=== PATIENT | female | born 1955 | race Caucasian/White ===

== ENCOUNTER → 2024-05-02 12:27 | Outpatient (CLI) | payer MEDICARE, OTHER, SELFPAY ==
--- NOTE | 2024-05-02 12:31 | DI.RAD.S_ITS ---
PROCEDURE: FL JOINT INJECTION LARGE LT INDICATIONS: osteoarthritis of left hip COMPARISON: None. TECHNIQUE: The indications, alternatives, benefits, risks, and complications of the procedure were explained to the patient. Written informed consent was obtained and placed in the chart. The patient was placed in an appropriate position on the fluoroscopy table, and a site was chosen for percutaneous access under fluoroscopic guidance. The site was prepped and draped in a sterile fashion. Local anesthetic was administered using a 1% lidocaine solution. A hypodermic or spinal needle was then used to access the symptomatic joint. Intra-articular location of the needle tip was confirmed by injecting a small amount of contrast, followed by steroid administration. The needle was then withdrawn, and a bandage applied to the puncture site. FINDINGS: Joint injected: Left hip Medications injected: 5 mL mL of 40 mg/mL Kenalog and 0.5% Ropivacaine mixture. Patient's pain before injection: 3 out of 10. Patient's pain after injection: 3 out of 10. Complications: None. IMPRESSION: Successful fluoroscopically guided administration of steroid and anaesthetic solution into the left hip joint. Dictated by: Alin Monroe M.D. on 05/02/2024 at 16:28 Approved by: Alin Monroe M.D. on 05/02/2024 at 16:33
[2024-05-02] MEDS: LIDOCAINE 1% 20 ML INJ (13:55)
[2024-05-02] MEDS: ROPIVACAINE 0.5% PF 5 MG/ML 20ML VIAL 20 ML INJ (13:55)
[2024-05-02] MEDS: TRIAMCINOLONE 40 MG/ML VIAL INTRA-ARTI (13:56)
== END ==
PROVIDERS: Referring Provider Orthopaedic Surgery; Visit Provider Orthopaedic Surgery
DX: M16.12 Unilateral primary osteoarthritis, left hip (principal)
CPT/HCPCS: 20610; 77002; Q9967

== ENCOUNTER → 2024-05-15 10:50 | Outpatient (CLI) | payer MEDICARE, OTHER, SELFPAY ==
--- NOTE | 2024-05-15 10:53 | EKG_ITS ---
[facility] [address] [place] [address] Test Date: 2024-05-15 Pat Name: Haley Mccain Department: 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
[2024-05-15 11:35] LABS: Add Manual Diff / Slide Review NO; Basophils Absolute Auto 0 /uL (0-100); Basophils Percent Auto 0.2 % (0-2); Eosinophils Absolute Auto 100 /uL (0-450); Eosinophils Percent Auto 2.3 % (2-4); Hemoglobin 12.5 g/dL (12.0-16.0); Lymphocytes Absolute Auto 1000 /uL (1100-4500); Lymphocytes Percent Auto 17.1 % (25-40); Mean Corpuscular HGB Conc 33.8 % (30-36); Mean Corpuscular Volume 94.7 fL (80-100); Monocytes Absolute Auto 400 /uL (0-900); Monocytes Percent Auto 7.3 % (3-14); Neutrophils Absolute Auto 4400 /uL (1500-7000); Neutrophils Percent Auto 73.1 % (50-75); Platelet Count 205 X10^3/uL (150-400); Red Blood Cell Count 3.91 X10^6/uL (4.0-5.2); Red Cell Distribution Width 14.2 % (11.6-14.8)
[2024-05-15 11:46] LABS: Appearance Urine UA CLEAR; Bilirubin Urine UA NEGATIVE (NEGATIVE); Color Urine UA YELLOW; Glucose Urine UA NEGATIVE (Negative); Ketones Urine UA NEGATIVE (NEGATIVE); Leukocyte Esterase Urine UA TRACE (NEGATIVE); Nitrite Urine UA NEGATIVE (Negative); Occult Blood Urine UA NEGATIVE (Negative); Protein Urine UA NEGATIVE (Negative); Urobilinogen Urine UA 0.2 E.U./dL (0.2)
[2024-05-15 11:58] LABS: Hemoglobin A1C% w Est Avg Glu 5.4 % (4.0-6.0)
[2024-05-15 11:59] LABS: BUN Creatinine Ratio 23.6 (6-22); Blood Urea Nitrogen 21 mg/dL (7-17); Calcium 9.4 mg/dL (8.4-10.2); Carbon Dioxide 29 mmol/L (22-32); Chloride 102 mmol/L (98-107); Estimated Glomerular Filt Rate > 60 mL/min (>60); Glucose 94 mg/dL (80-110); HEMOLYSIS < 15 (0-50); Potassium 4.1 mmol/L (3.4-5.1); Sodium 138 mmol/L (137-145)
[2024-05-15 12:03] LABS: Bacteria Urine None Seen; RBC Urine None Seen (0-5/HPF); Squamous Epithelial Cell Urine 1-5 /HPF (0-5/HPF); Urine Volume 10mL (spun); WBC Urine 1-5/HPF (0-5/HPF)
[2024-05-15 12:04] LABS: Culture Indicated Urine Cult Not Indicated
== END ==
PROVIDERS: Referring Provider Orthopaedic Surgery; Visit Provider Orthopaedic Surgery
DX: Z01.818 Encounter for other preprocedural examination (principal); R73.9 Hyperglycemia, unspecified; Z01.812 Encounter for preprocedural laboratory examination; N39.0 Urinary tract infection, site not specified
CPT/HCPCS: 36415; 80048; 81001; 83036; 85025; 93005; 93010

== ENCOUNTER → 2024-06-07 13:42 | Outpatient (CLI) | payer MEDICARE, OTHER, SELFPAY ==
--- NOTE | 2024-06-07 13:43 | DI.RAD.S_ITS ---
PROCEDURE: XR DEXA AXIAL SKELETON INDICATIONS: OSTEOPOROSIS SCREENING COMPARISON: None. FINDINGS: Lumbar Spine: Bone mineral density 0.666 g/cm2, T score -3.6. Left Femoral Neck: Bone mineral density 0.540 g/cm2, T score -2.8 Left Hip: Bone mineral density 0.469 g/cm2, T score -3.9. Fracture Risk Calculation (when applicable): 10-year fracture risk of a major osteoporotic fracture 14 percent and of a hip fracture 3.8 percent. (T score greater or equal to -1.0 to: NORMAL) (T score from -1.1 to -2.4: OSTEOPENIA) (T score less than or equal to -2.5: OSTEOPOROSIS) IMPRESSION: Osteoporosis---recommend repeat DEXA in 2 years or less for reassessment of response to treatment. Follow-up guidelines as follows: Osteoporosis: Consider a repeat DEXA and Vertebral Fracture Assessment (VFA) exam in 2 years or sooner if medically necessary, to reassess this patient's status. Osteopenia: Consider a repeat DEXA in 2-3 years to reassess this patient's status, or if there is a new clinical indication. Normal: Consider a repeat DEXA in 5 years or sooner, or if there is a new clinical indication. All treatment decisions require clinical judgment and consideration of individual patient factors, including patient preferences, comorbidities, previous drug use, risk factors not captured in the FRAX model (e.g., frailty, falls, vitamin D deficiency, increased bone turnover, interval significant decline in bone density ) and possible under- or over-estimation of fracture risk by FRAX. In addition, the NOF Guide recommends that FDA-approved medical therapies be considered in postmenopausal women and men age >= 50 years with a: * Hip or vertebral (clinical or morphometric) fracture * T-score of <=-2.5 at the spine or hip * Ten-year fracture probability by FRAX of >= 3% for hip fracture or >=20% for major osteoporotic fracture. Dictated by: Theodore Alcazar M.D. on 06/09/2024 at 5:58 Approved by: Theodore Alcazar M.D. on 06/09/2024 at 5:59
== END ==
LOC: RAD 13:42
PROVIDERS: Referring Provider Orthopaedic Surgery; Visit Provider Orthopaedic Surgery
DX: M81.0 Age-related osteoporosis without current pathological fracture (principal)
CPT/HCPCS: 77080

== ENCOUNTER 2024-08-07 08:56 | Day surgery (SDC) | payer MEDICARE, OTHER, SELFPAY ==
[2024-08-01 08:53] VITALS: BMI 23.0
[2024-08-07] VITALS (10 sets, daily range): BP systolic 90–169; BP diastolic 66–103; PULSE 62–76; RESP 12–20; TEMP 36.1–37.1; O2SAT 96–100; BMI 22.8
--- NOTE | 2024-08-07 | DI.RAD.S_ITS ---
PROCEDURE: XR HIP W PEL IF DONE LT 2V INDICATIONS: left total anterior hip TECHNIQUE: AP pelvis with lateral view(s) of the left hip(s). COMPARISON: [facility], CR, XR HIP W PEL IF DONE LT MIN 4V, 08/07/2024, 13:17. FINDINGS: Bones: There are no osseous abnormalities. SI and hip joints: New left total hip prostheses is in near anatomic alignment. Older right total hip prostheses anatomic aligned without loosening or infection. Soft tissues: Soft tissue swelling gas seen over the surgical site as expected IMPRESSION: Left total hip prostheses in near anatomic alignment. Dictated by: Maurisio Box M.D. on 08/08/2024 at 10:25 Approved by: Maruisio Box M.D. on 08/08/2024 at 10:26
--- NOTE | 2024-08-07 06:00 | DI.RAD.S_ITS ---
PROCEDURE: XR HIP W PEL IF DONE LT MIN 4V INDICATIONS: KAREN TECHNIQUE: 4 intraoperative fluoroscopic view(s) of the hip acquired. COMPARISON: None. FINDINGS: Intraoperative fluoroscopic images shows left total hip arthroplasty in progress. IMPRESSION: Fluoro guidance was provided intraoperatively for left total hip arthroplasty performed by referring clinician. Dictated by: Willis Marcum M.D. on 08/07/2024 at 15:40 Approved by: Willis Marcum M.D. on 08/07/2024 at 15:41
[2024-08-07] MEDS: CELECOXIB 200 MG CAPSULE PO (09:57)
[2024-08-07] MEDS: LACTATED RINGERS 1,000 ML 42 ML IV ×2 (09:58→13:45)
[2024-08-07] MEDS: ACETAMINOPHEN 325 MG TABLET 975 MG PO (09:58)
[2024-08-07] MEDS: VANCOMYCIN 1,000 MG in SODIUM CHLORIDE 0.9% 250 ML 250 MG IV (11:15)
--- NOTE | 2024-08-07 11:27 | PM.PREOP ---
Pre-operative Note Interval Note History & Physical reviewed/Exam performed by Physician: Yes Changes to H&P: No
[2024-08-07] MEDS: CEFAZOLIN 2 GM/100 ML PREMIX 100 ML IV ×2 (12:09→20:17)
[2024-08-07] MEDS: TRANEXAMIC ACID 1,000 MG VIAL 1000 MG INJ ×2 (12:10→14:10)
[2024-08-07] MEDS: BUPIVACAINE LIPOSOME 266 MG/20 ML VIAL INJ (12:42)
[2024-08-07] MEDS: BUPIVACAINE 0.25% W/ EPI 30 ML VIAL INJ (12:43)
--- NOTE | 2024-08-07 12:44 | SUR.OPER ---
Supine on padded [place] table with bilateral legs secured in padded positioning boots and suspended in positioning spars, operative leg (left) in traction per surgeon. Head on one pillow. Arm on non-operative side (right) secured on padded armboard <90 degrees abduction. Arm on operative side (left) padded and resting across chest then secured with tape over sheet. Padded perineal post in place per surgeon.
[2024-08-07] MEDS: EPINEPHrine 1 MG/ML IRR (14:30)
--- NOTE | 2024-08-07 15:43 | P.OP_ITS ---
Operative Date/Time/Diagnoses Date of procedure: 08/07/24 Time of procedure: 15:45 Pre-op diagnosis: left hip OA Post-op diagnosis: same Procedure & Clinicians Procedure: Left total hip arthroplasty anterior approach cemented Same procedure as scheduled: Yes Indications: The patient has had progressively worsening left hip pain with radiographic changes consistent with arthritis. Non-operative management has failed and the patient has requested total hip replacement. The risks, benefits and alternatives to surgery were discussed with the patient prior to proceeding. Risks discussed included, but were not limited to, failure to relieve pain, leg length discrepancy, dislocation, stiffness, infection, nerve damage, deep venous thrombosis, pulmonary embolism, stroke, coma, heart attack, permanent paralysis and , as well as the potential need for eventual revision of the prosthetic. Surgeon: Yaima Betancourt Electrical Products Sales Engineer: Adithya Asher Anesthesia Type: Spinal Operative Notes Findings: Severe left hip OA, soft bone Closure Type: primary Specimen(s): none sent Prosthetic devices, grafts, tissues, transplants, or devices: Betancourt and nephew polar cemented stem size 0, 46 mm R3 cup, neutral poly liner, 28 by-3 femoral head,two 6.5 mm screws Estimated Blood Loss (mL): 250 Blood products transfused: none Procedure in detail: The patient was brought to the operating room. Patient was carefully positioned in the supine position. Time-out was performed and antibiotics were given. Anesthesia was induced. She was positioned in the on the table in order to allow hyperextension of the hip. The left lower extremity was prepped and draped in a standard sterile fashion. An anterior left hip incision was made 1 fingerbreadth lateral to the anterior superior iliac spine and extended distally towards the greater trochanter. Dissection was carried out through skin and subcutaneous tissues. Superficial hemostasis was achieved. The fascia over the tensor fascia ni was defined and incised with a knife. Two Allis clamps were used to grasp the fascia. Tensor fascia ni was retracted laterally. A gelpi retractor was placed. Dissection was carried out down along the neck. The circumflex vessels were carefully identified and cauterized with the Aqua Mantis. A PA was used during the procedure and was essential for intraoperative retraction and safe implantation of the components. There was good visualization of the femoral neck. A Cobra was placed superior to the neck and the gluteus fibers were carefully stripped from that superior aspect of the capsule. A 2nd retractor was placed along the inferior aspect of the neck. The rectus insertion along the capsule was partially released. A 3rd retractor that was then gently placed over the rim of the acetabulum under the rectus. Capsule was carefully incised and released from the intertrochanteric line circumferentially superior to the mid sagittal line and inferiorly to the mid sagittal line until the lesser trochanter was palpable. A tag stitch was placed both in the superior and inferior limb of the capsular insertion. Along the acetabulum capsule was also released up to the mid sagittal 12:00 position. A portion of the labrum was resected. A saw was used to perform an osteotomy at the level of the intertrochanteric line and the junction of the superior femoral neck leaving approximately 1 finger breath of residual inferior neck above the lesser trochanter. A 2nd cut was made along the femoral neck at the base of the head and a napkin ring of neck was removed. Corkscrew was placed in the femoral head and the head was removed without difficulty. Retractors were then repositioned around the acetabulum. Residual labrum was resected and additional osteophytes were removed. A reamer that was 4 mm below the templated size was placed by hand in the acetabulum and it was reamed to centralize the acetabulum. It was then reamed up to 2 under the templated size and fluoroscopy was brought in to confirm the position of the reaming and depth of reaming. I reamed 1 under the anticipated size. She had a very small soft acetabulum. A trial cup was placed and noted that it was appropriately sized and fluoroscopy confirmed position and depth. The component was open and inserted without difficulty fluoroscopic imaging was used to confirm that the cup had been adequately seated and was well positioned. It was further stabilized with 2 screws. Neutral poly liner was placed. The cup was tested and noted to be stable. Attention was then directed to the femur. The femur was gently hyperextended additional capsular release was performed as needed in order to allow adequate visualization of the proximal femur with elevation of the femur. Patient was placed in a hyperextended slightly adducted position with maximum external rotation. Box osteotome was used to check for any residual neck as well as sclerotic bone along the trochanter. [place] pepper was placed in the femur. Additional broaching was performed. Canal finder was used to determine the alignment of the canal and position. Size 0 broach was placed. The canal was then appropriately broached up to the templated size as long as there was adequate stability of the broach and serial advancement of the broach without excessive impingement. Specific attention was directed at avoiding varus. She had soft bone. Her preoperative bone density showed a T-score of under -3. Trial reduction showed acceptable range of motion, good stability, no posterior impingement, uatsdin of leg length and appropriate lateral shuck. I also hyperflexed the hip and checked that there was no impingement anteriorly and there was good stability with flexion, adduction and internal rotation. She had a cemented prosthesis on the other side and soft bone with terrible osteoporosis and it was opted to proceed with a cemented hip replacement. The bone and the canal were carefully cleaned and brushed. It was irrigated with a pulse lavage. It was carefully dried and we used a whistle tip suction and a distal cement restrictor and then carefully mixed cement and injected it and pressurized the cement. Marcaine and Exparel were injected. The stem was placed without difficulty. Repeat trial reduction and x-ray showed acceptable overall position, length, and no evidence of the femoral fracture. Final head was placed. Wound was meticulously irrigated with normal saline. The hip was reduced and additional Exparel and Marcaine were injected. The capsule was closed with interrupted nonabsorbable sutures. The fascia of the tensor was closed with interrupted and running Vicryl. No drain was placed. Any tensor fascia ni muscle that appeared to be contused or injured which was a minimal amount was carefully resected. Capsule around the tensor was injected with Exparel and Marcaine. The skin was closed with barbed stitches for the subcutaneous tissue and skin. We also used surgical glue. The wound was dressed sterilely. Brief Betadine soak was also used and was meticulously irrigated with normal saline. Patient was transferred to recovery room in satisfactory condition. Complications: none Post-operative Condition: stable Disposition: Acute Care Plan for aftercare: The patient will be maintained on a standard total hip replacement protocol with weight bearing as tolerated and anterior hip precautions. The patient will receive Aspirin and sequential compression devices for DVT prophylaxis. The patient will be discharged home when safe for the home environment.
[2024-08-07] MEDS: IBUPROFEN 400 MG TABLET 800 MG PO (20:16)
[2024-08-07] MEDS: ASPIRIN EC 81 MG TABLET PO (20:16)
[2024-08-07] MEDS: HYDROCODONE/ACET 5/325 TABLET 1 TAB PO (20:17)
[2024-08-07] MEDS: LACTATED RINGERS 1,000 ML 100 ML IV (20:48)
[2024-08-07] MEDS: DOCUSATE 100 MG CAPSULE PO (21:53)
[2024-08-08] MEDS: ACETAMINOPHEN 325 MG TABLET 650 MG PO (04:34)
[2024-08-08 04:57] LABS: Hematocrit 30.8 % (36-46); Hemoglobin 10.7 g/dL (12.0-16.0)
[2024-08-08] MEDS: CEFAZOLIN 2 GM/100 ML PREMIX 100 ML IV (05:08)
[2024-08-08 08:00] VITALS: BP 126/73; PULSE 72; RESP 16; TEMP 36.6; O2SAT 98
[2024-08-08] MEDS: ASPIRIN EC 81 MG TABLET PO (08:46)
[2024-08-08] MEDS: HYDROCODONE/ACET 5/325 TABLET 1 TAB PO ×2 (08:47→14:30)
[2024-08-08] MEDS: IBUPROFEN 400 MG TABLET 800 MG PO (08:47)
[2024-08-08] MEDS: DOCUSATE 100 MG CAPSULE PO (08:48)
--- NOTE | 2024-08-08 08:50 | OT.IP.EVAL ---
Current Diagnoses Unilateral primary osteoarthritis, left hip (08/07/24) Surgery Performed Operation Date: 08/07/24 11:15 Actual Procedures p Total Hip Arthroplasty/Anterior Approach(Left) - Yaima Betancourt MD Past Medical History (Last Updated 08/01/24 @ 09:13 by Janey Montoya, RN) ADHD Anxiety Eczema HLD (hyperlipidemia) Osteoarthritis Osteoporosis Surgical History (Last Updated 08/01/24 @ 09:16 by Janey Montoya RN) History of hysterectomy History of total right hip replacement (07/2018) Hx of bilateral cataract extraction Hx of hernia repair Hx of tonsillectomy Occupational Therapy Inpatient Evaluation/Re-Eval M1 PT/OT-IP Prior Functional Status Start: 08/08/24 09:31 Freq: NEEDED Status: Active Protocol: Document 08/08/24 09:31 [facility] (Rec: 08/08/24 09:45 [facility] Desktop) Medical Review Prior Functional Status Communication Independent Mobility and Gait Pt has been using her FWW for the past week. Activities of Daily Living and IADL's Pt has been using LB dressing equipment and BSC over the toilet the past month, but otherwise able to do her ADL's . Social History Household Members children Living Arrangements House Number of Stairs To Enter/Railing? 1 - 6 inch step to get into the house. There is a ramp from the sewing room to back door. Home Environment Standard Height Toilet,Tub/ Shower Home Equipment Front Wheel Walker,Bedside Commode,Shower Seat with Backrest,Hand Held Shower,Long Handled Sponge,Long Handled Shoe Horn,Virtual Classroom Manager,Sock Aid Additional Social History Comment Pt's son to be able to assist pt however pt not wanting his assist for showering and toileting needs. Pt's sister lives down the street and can assist as well. Pt had R KAREN posterior 5 years ago. M2 OT-IP Current Condition Start: 08/08/24 09:31 Freq: Status: Active Protocol: Document 08/08/24 09:31 [facility] (Rec: 08/08/24 09:45 [facility] Desktop) Occupational Therapy Current Condition Current Condition Evaluation Date 08/08/24 Treatment Diagnosis S/P L KAREN Anterior approach Diagnosis Onset Date 08/07/24 Post Operative Precautions Anterior Hip Precautions No Hip Extension,No Hip External Rotation Weight Bearing Status Weight Bearing Status Weight Bear as Tolerated M3 OT- IP Subjective and Pain Start: 08/08/24 09:31 Freq: Status: Active Protocol: Document 08/08/24 09:31 [facility] (Rec: 08/08/24 09:45 [facility] Desktop) OT- Subjective Occupational Therapy Visit Type Type Initial Evaluation Visit Start Time 08:50 Visit Stop Time 09:28 Occupational Therapy Visit Comments Patient Comments Pt agreed to get up and get dressed. Patient/Caregiver Goals TO go home OT Pain Assessment Pain When Pain Assessed At Rest Pain Present Pain Present Pain Reported Location left hip Intensity 2 Scale Used Numeric (0 - 10) M4 OT- IP ADL's Start: 08/08/24 09:31 Freq: Status: Active Protocol: Document 08/08/24 09:31 [facility] (Rec: 08/08/24 09:45 [facility] Desktop) OT [id number]-[id number] General Evaluation Self-Feeding Ability Independent OT ADL-Grooming General Evaluation Areas Needing Assistance Retrieving/Set-up of Grooming Items OT ADL-Oral Care General Eval Oral Care Ability Independent OT ADL-Dressing General Eval Upper Body Dressing Ability Independent Lower Body Dressing Ability Contact Guard Assistance Comments OT Dressing Comments Assist to help get pants over the non slip socks. Educated to dress the LLE first and take out last. OT ADL-Toileting General Evaluation Toileting Ability Standby Assistance Comments OT Toileting Comments Educated to be mindful of LLE positioning during ADL needs. Suggested use of wipes and pads if needed. OT ADL-Bathing Comments OT Bathing Comments Suggested to practice getting into and out of the tub/shower with her son with her clothes on so to be sure she is able to do it. Pt does not want anyone to assist for showering needs. Otherwise suggested to have a robe on when getting in and out with assist. M5 OT- IP IADL's Start: 08/08/24 09:31 Freq: Status: Active Protocol: Document 08/08/24 09:31 [facility] (Rec: 08/08/24 09:45 [facility] Desktop) OT-Instrumental Activities of Daily Living Home Safety Awareness Awareness of Need for Assistance at Home Good Awareness Ability to Problem Solve Emergency Able to Problem Solve Situations Meal Preparation Meal Preparation Comments Pt's son to assist. Plate Glass Polisher Plate Glass Polisher Comments Pt's son to assist. M6 OT- IP Functional Cognition Start: 08/08/24 09:31 Freq: Status: Active Protocol: Document 08/08/24 09:31 [facility] (Rec: 08/08/24 09:45 [facility] Desktop) Cognitive Factors Limiting Selfcare Function Cognitive Ability Level of Alertness Alert Patient Orientation Name Attention Span Ability Capable of Focused Attention, Capable of Sustained Attention Ability to Follow Commands Able to Follow One Step Commands Cognitive Comments Cognitive Assessment Comments Pt able to follow commands for ADL and mobility needs. Pt needing vc for FWW safety and hand placement initially. OT- Vision and Hearing OT- Hearing Assessment OT- Hearing Assessment WFL M7 OT- IP Mobility and Balance Start: 08/08/24 09:31 Freq: Status: Active Protocol: Document 08/08/24 09: [facility] (Rec: 08/08/24 09:45 [facility] Desktop) OT- Bed Mobility Assessment Supine to Sit Supine to Sit Assist Standby Assistance Sit to Supine Sit to Supine Assist Standby Assistance OT-Transfer Assessment Sit to and From Stand Sit to and from Stand Standby Assistance,Contact Guard Assistance Transfers Transfer Ability Standby Assistance Technique Transfer Destination Bed,Chair,Toilet Comments Mobility Comments Pt hesitates to use LLE and cued to put weight on it. VC for FWW safety and not to have the FWW too close to her. VC to step with right foot back or just take small steps. Pt typically sleep on the right side and gets out that way. Educated best to get out on the left side.Practiced use of strap to assist to get her LLE into and out of the bed. OT- Balance Assessment Sitting Balance and Reactions Static Sitting Balance Ability Normal Dynamic Sitting Balance Ability Good Standing Balance and Reactions Static Standing Balance Ability Good Dynamic Standing Balance Ability Fair M8 OT- IP Objective Assessments Start: 08/08/24:31 Freq: Status: Active Protocol: Document 08/08/24 09:31 [facility] (Rec: 08/08/24 09:45 [facility] Desktop) OT Gross Range of Motion Upper Extremity Range of Motion Assessment Within Functional Limits OT Strength Upper Extremity Strength Assessment Within Functional Limits M9 OT- IP Assessment and Plan Start: 08/08/24:31 Freq: Status: Active Protocol: Document 08/08/24 09:31 [facility] (Rec: 08/08/24 09:45 [facility] Desktop) OT Summary Assessment and Plan Potential Rehabilitation Potential Excellent Analytic Complexity at Evaluation Low Summary OT Impairments Pain,Balance,Functional Mobility,Dressing,Toileting, Bathing,Toilet Transfers, Shower Transfers Progress Towards Goals Progressing Toward Goals Assessment Summary Pt low complexity and main barriers are pain and step. Pt has supportive son and sister to assist as needed. However pt does not want anyone to assist her with toileting and bathing needs. Pt to go home with assist and attend outpt PT. Pt doing well. Goals Grooming Goal Independent Dressing Goal Independent,Long Handled Shoe Horn,Virtual Classroom Manager,Sock Aid Toileting Goal Independent Bathing Goal Independent,Hand Held Shower Sprayer Toilet Transfer Goal Independent Shower Transfer Goal Independent Days to Meet Goals 3 Frequency of Treatment Frequency Of Treatment Once a Day Treatment Plan OT Treatment Plan ADL Training,Functional Mobility,Patient/Family Education,Discharge Planning Discharge Recommendations OT Discharge Recommendations Home with Assistance, Outpatient PT Transportation Needs at Discharge Private Vehicle
--- NOTE | 2024-08-08 10:55 | PT.IIE ---
Current Diagnoses Unilateral primary osteoarthritis, left hip (08/07/24) Surgery Performed Operation Date: 08/07/24 11:15 Actual Procedures p Total Hip Arthroplasty/Anterior Approach(Left) - Yaima Betancourt MD Surgical History (Last Updated 08/01/24 @ 09:16 by Janey Montoya, RN) History of hysterectomy History of total right hip replacement (07/2018) Hx of bilateral cataract extraction Hx of hernia repair Hx of tonsillectomy Medical History (Last Updated 08/01/24 @ 09:13 by Janey Montoya RN) ADHD Anxiety Eczema HLD (hyperlipidemia) Osteoarthritis Osteoporosis Physical Therapy Inpatient Evaluation/Re-Eval M1 PT/OT-IP Prior Functional Status Start: 08/08/24 12:56 Freq: NEEDED Status: Active Protocol: Document 08/08/24 10:55 AB (Rec: 08/08/24 13:17 AB [id number]) Medical Review Prior Functional Status Medical History Reviewed Yes Communication able to make needs known Mobility and Gait pt stated that she has been using her hurrycane for mobility but started using a FWW ~ 1 week ago due to hip pain Activities of Daily Living and IADL's per OT note: Pt has been using LB dressing equipment and BSC over the toilet the past month, but otherwise able to do her ADL's. Social History Household Members children Living Arrangements House Number of Floors (Floors) One Floor Number of Stairs To Enter/Railing? 1 step to enter Home Environment Standard Height Toilet,Tub/ Shower Home Equipment Front Wheel Walker,Bedside Commode,Shower Seat with Backrest,Hand Held Shower Additional Social History Comment pt lives with her son who can assist her if needed pt has a hurrycane M2 PT-IP Current Condition Start: 08/08/24 12:56 Freq: NEEDED Status: Active Protocol: Document 08/08/24 10:55 AB (Rec: 08/08/24 13:17 AB [id number]) Physical Therapy Current Condition Current Condition Evaluation Date 08/08/24 Treatment Diagnosis s/p L KAREN anterior; difficulty in walking Onset Date 08/07/24 M3 PT-IP Subjective Start: 08/08/24 12:56 Freq: NEEDED Status: Active Protocol: Document 08/08/24 10:55 AB (Rec: 08/08/24 13:17 AB [id number]) Subjective Physical Therapy Visit Type Type Initial Evaluation Visit Start Time 10:55 Visit Stop Time 11:30 Number of FORESTER AIDE Visits 0 Physical Therapy Visit Comments Patient Comments agreeable to do PT Therapy Pain Assessment Pain When Pain Assessed At Rest Pain Present Pain Present Pain Reported Location left hip Intensity 3 Scale Used Numeric (0 - 10) Pain Management Techniques Apply Cold,Modification of Treatment,Re-positioning, Timing of Activity with Medications M4 PT-IP Mobility and Gait Start: 08/08/24 12:56 Freq: NEEDED Status: Active Protocol: Document 08/08/24 10:55 AB (Rec: 08/08/24 13:17 AB [id number]) PT-Bed Mobility Assessment Supine to Sit Supine to Sit Standby Assistance Sit to Supine Sit to Supine Standby Assistance PT-Transfer Assessment Sit to and From Stand Sit to and from Stand Standby Assistance,1 Person Assistance,Use of Upper Extremities Equipment Transfer Assistive Device Gait Belt,Front Wheeled Walker Orthotic/Prosthetic Devices or Brace: No Transfers Transfer Destination Chair Transfer Technique ambulated Transfer Ability Level of Assist Standby Assistance,Contact Guard Assistance,1 Person Assistance,Use of Upper Extremities Comments Mobility Comments pt in bed and agreeable to do PT. obtained PLOF and home set up. educated on L hip anterior precautions. pt completed supine<>sit x 2 sets SBA and cues for techniques. pt stated that son will be able to assist her . sit to stand SBA and cues and ambulated in the room using FWW ~ 20 ft. pt sat on chair and rested. Sit<>stand x 3 sets completed SBA and techniques for body positioning to better transitions and more stable initial standing. pt ambulated ~ 30 ft out to the hallway. completed up/down platform step using FWW CGA. cued provided on first attempt . pt completed again without cues CGA. pt stated that she will be able to tell her son on how to assist her. pt ambulated back to the room and sat on the chair SBA to CGA using FWW. positioned pt on the chair. call light and table placed within reach. Gait Assessment Gait Gait Assistance Required: Standby Assistance,Contact Guard Assist Distance (Feet) 30 Able to Maintain Weight Bearing Status Yes During Gait Assistive Devices Assistive Device Gait Belt,Front Wheeled Walker Orthotic/Prosthetic Devices or Brace: No Gait Deviations General Gait Pattern Antalgic,Decreased Feet Clearance Factors Limiting Gait Function Factors Limiting Gait Function Decreased Activity Tolerance, Decreased Strength,Limited Range of Motion,Pain,Poor Balance,Poor Safety Awareness Stair Climbing Assessment Evaluation Level of Assist On Stairs Contact Guard Assistance Devices Stair Climbing Assistive Devices Front Wheel Walker Technique/Endurance Stair Climbing Direction Ascend and Descend Stair Climbing Technique Step to Step Number of Steps Climbed 1 Query Text: Stair Climbing Set # Repetitions (reps) 2 PT-Balance Assessment Sitting Balance and Reactions Static Sitting Balance Ability Normal Dynamic Sitting Balance Ability Good Standing Balance and Reactions Static Standing Balance Ability Good Dynamic Standing Balance Ability Fair Device Used FWW M5 PT-IP Objective Assessments Start: 08/08/24 12:56 Freq: NEEDED Status: Active Protocol: Document 08/08/24 10:55 AB (Rec: 08/08/24 13:17 AB [id number]) Orientation Orientation/Cognition Level of Alertness Alert Orientation Name,Place,Situation Language Function Ability No Deficits Noted Safety Awareness Understands Safety Issues Memory Description No Deficits Noted Gross Range of Motion Lower Extremity ROM Assessment Within Functional Limits Strength Lower Extremity Strength Assessment Left Impaired Hip 3+/5 Knee 4-/5 Coordination Assessment Gross Coordination Gross Coordination WNL Sensation Assessment Sensation Gross Sensation WNL Muscle Tone Muscle Tone WNL Yes M6 PT-IP Treatment Start: 08/08/24 12:56 Freq: NEEDED Status: Active Protocol: Document 08/08/24 10:55 AB (Rec: 08/08/24 13:17 AB [id number]) Physical Therapy Treatment Education Education Provided Precautions,Weight Bearing Status,Safety M7 PT-IP Assessment and Plan Start: 08/08/24 12:56 Freq: NEEDED Status: Active Protocol: Document 08/08/24 10:55 AB (Rec: 08/08/24 13:17 AB [id number]) PT Summary Assessment and Plan Potential Rehabilitation Potential Good Status of Condition at Evaluation Stable Summary Impairments Pain,ROM,Strength,Balance, Coordination,Sensation,Tone, Cognition,Bed Mobility, Transfers,Gait,Activity Tolerance Assessment Summary pt is a 68 y/o F s/p L KAREN anterior approach POD 1. pt has L hip anterior precautions and is WBAT. pt requiring SBA for bed mobility, SBA to CGA for ambulation using FWW. pt will have her son to assist her at home and has outpt PT set up. Goals Bed Mobility Goal Independent Transfer Goal Independent,Front Wheeled Walker Gait Goal Independent,Front Wheel Walker Gait Distance 150 Other Goals up/down 1 step using FWW mod I Days to Meet Goals 5 Frequency of Treatment Frequency Of Treatment Twice a Day Treatment Plan Physical Therapy Treatment Plan Bed Mobility Training,Transfer Training,Gait Training, Therapeutic Exercise,Balance Retraining,Post Op Education, Discharge Planning,Hot or Cold Pack,Neuromuscular Re-ed, Coordination Retraining,Manual Therapy Precautions Anterior Hip Precautions No Hip Extension,No Hip External Rotation Weight Bearing Status Weight Bearing Status Weight Bear as Tolerated Allowed Weight Bearing Amount (enter % LLE WBAT or #) (%) Recommendations To Nursing Amount of Assist Needed 1 Person Assist Discharge Recommendations PT Discharge Recommendations Home with Assistance, Outpatient PT Transportation Needs at Discharge Private Vehicle - PT assist 1
--- NOTE | 2024-08-08 11:40 | CM.DANOTE ---
Patient is a 68 yo female who was admitted [facility] on 08/07/24 for planned LTHA. Pt has [employer] and [employer] for insurance and [facility]. EMR was reviewed. Per Ortho, pt tolerated LTHA well and to work with PT/OT today towards likely plan of home this afternoon if stable. Per PT/OT, recommending home with assist and outpt PT. SW met in room with pt sitting in bedside chair and explained role and pt confirms she lives in [place] at home with her adult son Jeffery and is independent with ADLs at baseline. Pt does not use DME for ambulation and denies any hx of HH or SNF. Pt confirms her preference is home and her son Jeffery can assist at d/c and she also has her local sister who is available to help if needed. OT worked with pt on bathing assist as pt does not want family to have to assist her with showering so practiced options for safe bathing. Pt confirms she already has outpt PT set up and denies any further needs at this time. Plan; SW to follow for plan of likely d/c home this afternoon if she remains stable via son POV and outpt f/u and any further identified discharge planning needs. LISSETH Alex Discharge Planning/Care Management CM Discharge Assessment Start: 08/07/24 15:37 Freq: Status: Active Protocol: Document 08/08/24 11:38 BF (Rec: 08/08/24 11:40 BF [id number]) Discharge Planning Assessment Assigned Fall Intern LISSETH Brand DPOA/Assigned Designee Name koby Gil Contact Information [phone] Advance Directives? Yes Advance Directives on File No History Provided By Patient,Medical Record Has Patient been admitted in last 30 No days? Prior Living Arrangements House Household Members children Comment Koby Gil lives with pt and can assist Type of transporation used prior to Drives own vehicle admit Independent with ADL's Yes Is patient alert and oriented? Yes Caregiver for Another No Community Services used prior to Physical Therapy admission: Patient/Family Preference OP PT Therapy Barriers to Discharge No Discharge Plan Home Community Services Physical Therapy Transportation Arrangement Koby Gil plans to provide transport at d/c Referrals Initiated None needed Whiteboard Updated in Patient Room with Yes name and ext. # of Fall Intern Review Status In Process Please Provide Date Initial DC 08/08/24 Assessment Was Performed Next Review Type Continued Stay Review Pre-Anesthesia Assessment Start: 08/01/24 08:53 Freq: Status: Active Protocol: Document 08/01/24 08:53 CAB (Rec: 08/01/24 09:28 CAB [id number]) Pre-Anesthesia Assessment PAC Comment Phone assess 08/01/24 Patient Information Reviewed Via Phone Assessment Diagnostic Results BMP/CMP,CBC,EKG,Urinalysis Comment Labs/EKG @ [facility] 05/15/24 Primary Care Provider Mamadou Bhatti Seen Specialist in Last 12 Months Yes Specialist Seen Orthopedist,Other Primary Language Turkmen English Composition Teacher Required No Height 152.4 cm Weight 53.524 kg Body Mass Index (BMI) 23.0 Hearing Ability Normal Visual Assist Glasses Dentition Type Teeth, Natural Present Barriers to Learning None Hx Anesthesia Reactions No Hx Family Anesthesia Reaction No Hx Malignant Hyperthermia No Hx Blood Transfusions No Anesthesia Review Requested No Jump Roll Operator No alcohol intake never Smoking Status Never smoker Substance Use Type [#R] does not use Pain Present Pain Reported Musculoskeletal Symptoms Abnormal Gait,Difficulty Walking,Joint Pain History of Falling (Recent or History of Yes ) Patient is completely paralyzed or No completely immobile Prosthesis or Orthotic Device Cane Mental Status Oriented to own ability Is patient on oxygen? No Does patient have CASTELLANOS/SOB No Hx Sleep Apnea No Currently Taking a Beta Yasmeen No Hx Chest Pain No Hx SOB No Hx Syncope or Dizziness No Anti-Coagulant Therapy No Has a Section Chief No Cardiac Testing No Hx Pacemaker/ICD No Pacemaker Rep Required? No Cardiac Clearance Received No Gastrointestinal Symptoms Constipation Urinary Catheter Present No Hx Urinary Self Catheterization No Diabetes No HgbA1C 5.4 Date 05/15/24 Patient No Lactating No Hx Drug Resistant Organism No Presence of External or Internal Medical Yes: Bilat eye IOLs, right hip Devices Comment No covid symptoms last 8 weeks Marital Status / Lives With children Current Living Arrangements House Number of Floors (Floors) One Floor Number of Stairs To Enter/Railing? 1 step Support System Child/Children Comment Lives with son Does the Patient Have Assistance After Yes: Son will assist with care Surgery at [place] Patient Discharge Plan Description Return Home Comment Pt advised same day surgery per surgeon Feels Safe in Current Environment Yes Been Physically Hurt or Threatened By a No Person in Current Environment Do you have thoughts of harming yourself None or others? Are you currently considering suicide? No Do you have a plan to hurt yourself or No Plan others? Do You Have Any Spiritual Beliefs That No May Affect Your HC Choices? Do You Have Any Cultural Practices That No May Affect Your HC Choices? Comment Jain Who Can We Speak to About Patient's Care Family, friends Identifying Code for Release of Patient Declines to issue Information Health Care Proxy/Next of Kin Bibi (daughter) Jeffery (son) Health Care Proxy Phone Number Bibi: [phone] Jeffery: [phone] Emergency Contact Name Bibi (daughter) Jeffery (son) Emergency Contact Phone Number Bibi: [phone] Jeffery: [phone] Advance Directives? Yes Advance Directives on File No Power of Manager Product Marketing Yes: Pt unsure of who POA is at present PAC Instructions Assistance for 24 hours post- op,Do not shave/clip surgical site,Durable medical equipment ,Medications to take/avoid, Nasal antibiotic,No ETOH/ petroleum product on skin DOS, NPO,Post-op transportation,Pre -surgical wash,Sturdy shoes/ comfortable clothes,Do not bring valuables and remove jewelry
--- NOTE | 2024-08-08 14:37 | PM.DS.1 ---
History of Present Illness History of Present Illness Date Patient Seen: 08/08/24 Time Patient Seen: 14:37 Chief complaint: OPB Narrative: The patient has had progressively worsening left hip pain with radiographic changes consistent with arthritis. Non-operative management has failed and the patient has requested total hip replacement. The risks, benefits and alternatives to surgery were discussed with the patient prior to proceeding. Risks discussed included, but were not limited to, failure to relieve pain, leg length discrepancy, dislocation, stiffness, infection, nerve damage, deep venous thrombosis, pulmonary embolism, stroke, coma, heart attack, permanent paralysis and , as well as the potential need for eventual revision of the prosthetic. Discharge Providers Provider Discharge Date: 08/08/24 Primary care physician: Doctor Ilda MD Consults: 08/07/24 06:00 Consult to Anesthesiology Routine Comment: Consulting Provider: Anesthesiologist Reason for consultation: Regional block for post operative pain control Has provider been notified: No 08/07/24 16:04 Consult to Discharge Planning Routine Comment: Consult to Occupational Therapy Evaluate & Treat Comment: Physician Instructions: Evaluate and treat Consult to Physical Therapy Evaluate & Treat Comment: Physician Instructions: post op KAREN protocol Discharge provider: Adithya Asher PA-C Summary Hospital Course Discharge Diagnosis: left hip OA Hospital Course: Left total hip arthroplasty anterior approach cemented Same procedure as scheduled: Yes Surgeon: Yaima Betancourt High Lift Driver: Adithya Asher Anesthesia Type: Spinal Operative Notes Findings: Severe left hip OA, soft bone Closure Type: primary Specimen(s): none sent Prosthetic devices, grafts, tissues, transplants, or devices: Betancourt and nephew polar cemented stem size 0, 46 mm R3 cup, neutral poly liner, 28 by-3 femoral head,two 6.5 mm screws Estimated Blood Loss (mL): 250 Blood products transfused: none Status at Discharge Cognitive/behavioral status at discharge: oriented Functional status at discharge: uses cane/walker Overall status at discharge: patient is back to baseline Time Spent with Patient Time spent: Less than 30 minutes Exam Vital Signs (past 8 hours): - 08/08/24 08:00 Temperature 97.9 F Pulse Rate 72 Respiratory Rate 16 Blood Pressure 126/73 Pulse Oximetry 98 Oxygen Flow Rate 0 Oxygen Delivery Method Room Air Oxygen Flow Rate 0 Narrative Exam Narrative: Patient's pain is controlled with oral medication. Pain is localized to surgical site. Patient declines any new numbness or tingling at the surgical extremity. Patient denies any shortness of breath, dizziness, light-headedness, nausea, vomiting, fever or chills. 5/5 strength in hip flexors, quadriceps, hamstrings, DF, PF, EHL bilaterally. Sensation to light touch intact throughout BLE. Calves soft, compressible, nontender. Dressing placed intraoperatively CDI. Objective Labs 08/08/24 04:24 Labs: Laboratory Results - last 24 hr 08/08/24 04:24 Hgb 10.7 L Hct 30.8 L PFSH Medical History (Updated 08/01/24 @ 09:13 by Janey Montoya, RN) Anxiety ADHD Eczema Osteoarthritis Osteoporosis HLD (hyperlipidemia) Surgical History (Updated 08/01/24 @ 09:16 by Janey Montoya RN) History of total right hip replacement (07/2018) Hx of tonsillectomy History of hysterectomy Hx of hernia repair Hx of bilateral cataract extraction Social History household members: children Smoking Status: Never smoker alcohol intake: never Discharge Assessment & Plan Assessment and Plan Assessment: Stat us post Left total hip arthroplasty anterior approach cemented Plan of Treatment: Discharge to home. Anterior Hip Pre-cautions. Ambulate and weight bear as tolerated with assistive devices. Aspirin 81 mg twice a day for 6 weeks for DVT prevention. Baseline pain relief with acetaminophen 500mg every 4 hours as needed and ibuprofen 400 mg every 4 hours as needed. Patient has [place] 5/325 already at home for breakthrough pain. Initiate physical therapy in the next 5-10 days. Keep dressing clean and dry. Keep dressing on until first office visit. If dressing becomes dirty or disrupted, replace with appropriate sized dressing. Follow up in clinic in 2 weeks for wound check. Contact clinic if there are any questions or concerns. Discharge Plan Discharge Plan Patient Disposition: Home Nursing Discharge Comment: verbal order taken from MD Yaima Betancourt Discharge orders & Medications Discharge Orders: Discharge (Order); Ordered 08/08/24 Ordered By: Yaima Betancourt Prescriptions: No Action terbinafine HCl 250 mg tablet 250 mg PO DAILY rosuvastatin 20 mg tablet 20 mg PO DAILY ibuprofen 800 mg Tablet 800 mg PO BID hydrocodone-acetaminophen 5-325 mg Tablet 1 tab PO TID Follow up/Referrals: Miscellaneous,Doctor, [Primary Care Provider] - Diet/Activity/Treatments Diet: Diet as Tolerated Activity: Ambulate multiple times a day. Use a cane or walker as needed. Full weight on leg. Cold/Heat Therapy: Use ice multiple times a day. Skin/Wound/Dressing Care Report to your healthcare provider any signs of infection, such as:: chills, fever, unusual drainage and unusual redness Dressing: May shower. Leave dressing in place until follow up in office. No bathing or otherwise soaking incision. Call the office if the dressing becomes saturated inside. Visit Report/Discharge Packet Instructions: DI for Hip Replacement, DI for Prescription Opioid Use Stand Alone Forms: Patient Portal/API, Surgery Discharge Discharge Data Primary Care Provider: Miscellaneous,Doctor Attending Provider: Yaima Betancourt VTE Deep Vein Thrombosis/Pulmonary Embolism Present on Admission: No
--- NOTE | 2024-08-08 14:46 | PC.NURSE ---
Day shift: MD Betancourt saw patient at 0700 and said she was ok to be discharged pending OT/PT. After cleared by PT/OT, this RN called MD Betancourt to request discharge order. MD Betancourt stated ok to discharge patient but BIBIANA Asher would be there soon to complete discharge. She said ok to take verbal order to discharge. I told her, typically we don't take verbal orders for discharge unless extenuating circumstances. Called Jeffery Asher and left VM. Per RN Jeffery Pryor in OR and wouldn't be done until 2pm. Patient asking multiple times to leave. VIBHA Portillo also called MD Betancourt as she was also waiting for a discharge order. MD Betancourt again stated to take a verbal order for discharge. Due to the unknown of when discharge orders would be completed, this RN completed discharge order and paperwork per MD Betancourt's instruction. Gone over discharge paperwork with patient and patient's son. Patient stated understanding, all questions answered. PIV d/c'ed prior to discharge. All belongings with patient. PCT Pepe escorted patient to exit via wheelchair.
== END 2024-08-08 14:20 | disposition home or self-care (01) ==
LOC: OR 09:01 → AC 15:36
PROVIDERS: Referring Provider Orthopaedic Surgery; Visit Provider Orthopaedic Surgery
PROC: (CPT 27130; principal; 2024-08-07 11:15)
DX: M16.12 Unilateral primary osteoarthritis, left hip (principal); M81.0 Age-related osteoporosis without current pathological fracture; M25.752 Osteophyte, left hip
CPT/HCPCS: 27130; 36415; 73502; 73503; 76000; 85014; 85018; 97161; 97165; 97530; 97535; C1776; C1713; J0171; J0666; J0690; J1100; J2250; J2405; J2704; J3010

== ENCOUNTER → 2024-09-22 11:30 | Outpatient (CLI) | payer MEDICARE, OTHER, SELFPAY ==
[2024-08-07 17:40] VITALS: BMI 22.8
--- NOTE | 2024-09-22 11:31 | DI.CT.S_ITS ---
PROCEDURE: CT LE LT W CON INDICATIONS: pain TECHNIQUE: Noncontrast 3 mm axial sections acquired through the bony pelvis. Additional 3 mm axial sections acquired through the symptomatic hip joint, with coronal and sagittal reformats. COMPARISON: [facility] [place], CR, XR PELVIS WITH LATERAL HIP LEFT, 09/19/2024, 11:37. FINDINGS: Image quality: Diagnostic within the limitations of metallic artifact Bones: Left hip arthroplasty. There is malalignment of the acetabular component, with widened inferior joint space. No definite acute displaced fracture. Background degenerative changes in the lumbosacral spine. Right hip arthroplasty in place. No pubic diastasis Soft tissues: Increased fecal loading. Intrapelvic structures not well assessed on this study. There is metallic artifact. IMPRESSION: Left hip arthroplasty with malalignment. There is inferior joint space widening. Images obtained for surgical planning. Dictated by: Juan F Masters M.D. on 09/23/2024 at 1:43 Approved by: Juan F Masters M.D. on 09/23/2024 at 1:45
== END ==
LOC: CT 11:31
PROVIDERS: Referring Provider Orthopaedic Surgery; Visit Provider Orthopaedic Surgery
DX: T84.021A Dislocation of internal left hip prosthesis, initial encounter (principal); Z96.642 Presence of left artificial hip joint
CPT/HCPCS: 73700

== ENCOUNTER 2024-10-10 06:02 | Inpatient (IN) | payer MEDICARE, OTHER, SELFPAY ==
[2024-08-07 17:40] VITALS: BMI 22.8
[2024-10-01 07:40] VITALS: BMI 23.0
[2024-10-10] VITALS (12 sets, daily range): BP systolic 123–149; BP diastolic 62–86; PULSE 56–77; RESP 12–18; TEMP 36–36.6; O2SAT 96–100; BMI 22.4
--- NOTE | 2024-10-10 | DI.RAD.S_ITS ---
PROCEDURE: XR HIP W PEL IF DONE LT 2V INDICATIONS: LT HIP TOTAL REVISION TECHNIQUE: AP pelvis and lateral view of the hip acquired. COMPARISON: [facility], CR, XR HIP W PEL LT 2V, 10/10/2024, 9:51. FINDINGS: Bones: There are no osseous abnormalities. SI and hip joints: Right total hip prosthesis is in anatomic aligned without loosening or infection. Left total hip prostheses shows slight excess anteversion of the acetabular component. No evidence of loosening. Soft tissues: Multiple densities overlie the anterior soft tissues of the left hip. This is presumably overlie the patient. IMPRESSION: Bilateral hip prostheses as described Dictated by: Maurisio Box M.D. on 10/11/2024 at 12:05 Approved by: Maurisio Box M.D. on 10/11/2024 at 12:07
--- NOTE | 2024-10-10 06:00 | DI.RAD.S_ITS ---
PROCEDURE: XR HIP W PEL IF DONE LT 2V INDICATIONS: KAREN TECHNIQUE: Four spot fluoroscopic intraoperative images of the pelvis and left hip. COMPARISON: [facility], , XR HIP W PEL IF DONE LT 2V, 08/07/2024, 15:08. FINDINGS and IMPRESSION: Fluoroscopy was utilized by the ordering provider for intraprocedural guidance for a left total hip arthroplasty procedure. Approved by: Tu Araujo M.D. on 10/10/2024 at 11:39
--- NOTE | 2024-10-10 07:01 | PM.PREOP ---
Pre-operative Note Interval Note History & Physical reviewed/Exam performed by Physician: Yes Changes to H&P: No
[2024-10-10] MEDS: CELECOXIB 200 MG CAPSULE PO (07:10)
[2024-10-10] MEDS: ACETAMINOPHEN 325 MG TABLET 975 MG PO (07:10)
--- NOTE | 2024-10-10 07:10 | P.OP_ITS ---
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 She had extremely soft bone and her postop x-rays showed evidence of loosening of the acetabulum with malpositioned. There was evidence of progressive change in position of the acetabulum and she was returned to the operating room for revision hip arthroplasty. She was worked up with a CT scan and revision acetabular components were made available for the case. The risks, benefits and alternatives to surgery were discussed with the patient prior to proceeding. Risks discussed included, but were not limited to, failure to relieve pain, leg length discrepancy, dislocation, stiffness, infection, nerve damage, deep venous thrombosis, fracture, pulmonary embolism, stroke, coma, heart attack, permanent paralysis and , as well as the potential need for eventual rerevision of the prosthetic. Surgeon: Yaima Betancourt Licensed Prosthetist/Orthotist: Adithya Asher Anesthesia Type: General and Spinal Operative Notes Findings: Obvious loosening of the acetabulum, very soft bone, adequate stability Closure Type: primary Specimen(s): other (Culture and sensitivity) Prosthetic devices, grafts, tissues, transplants, or devices: Betancourt and nephew Redapt acetabulum size 50, neutral poly liner, 1 nonlocking screw, 4 locking screws, 36 x -3 femoral head Oxinium Applied: none Estimated Blood Loss (mL): 200 Blood products transfused: none Procedure in detail: The patient was brought to the operating room. Patient was carefully positioned in the supine position. Time-out was performed and antibiotics were given. Anesthesia was induced. She was positioned in the on the table in order to allow hyperextension of the hip. The left lower extremity was prepped and draped in a standard sterile fashion. An anterior left hip incision was made 1 fingerbreadth lateral to the anterior superior iliac spine and extended distally towards the greater trochanter. The patient's previous skin incision was used and excised. Dissection was carried out through skin and subcutaneous tissues. Superficial hemostasis was achieved. The fascia over the tensor fascia ni was defined and incised with a knife. Two Allis clamps were used to grasp the fascia. Tensor fascia ni was retracted laterally. A gelpi retractor was placed. Dissection was carried out down along the capsule. The vessels were carefully identified and cauterized with the Aqua Mantis. A PA was used during the procedure and was essential for intraoperative retraction and safe implantation of the components. There was good visualization of the femoral prosthetic neck. A Cobra was placed anteriorly.. A 2nd retractor was placed along the inferior aspect of the neck. The soft tissues were meticulously dissected circumferentially from around the cup. The hip was dislocated. The head was removed with a tamp. The stem was checked and it was noted to be stable with the appropriate version. Dissection was carried out in order to allow mobilization of the femur. The cup was carefully removed. The polyethylene was removed and the 2 screws were removed. A reamer size 46 was placed by hand in the acetabulum and it was reamed to centralize the acetabulum. It was then reamed up to size 49 and fluoroscopy was brought in to confirm the position of the reaming and depth of reaming. A trial cup was placed and noted that it was appropriately sized and fluoroscopy confirmed position and depth. The component was open and inserted without difficulty fluoroscopic imaging was used to confirm that the cup had been adequately seated and was well positioned. The cup was tested and it was noted that it was stable prior to screw insertion. It was then further stabilized with a single nonlocking screw and multiple locking screws. Neutral poly liner was placed. The cup was tested and noted to be stable. I checked the cup position and screw position with fluoro and then placed the polyethylene liner. Trial reduction showed acceptable range of motion, good stability, no posterior impingement, anglican of leg length and appropriate lateral shuck. I also hyperflexed the hip and checked that there was no impingement anteriorly and there was good stability with flexion, adduction and internal rotation. Marcaine and Exparel were injected. Final head was placed. Wound was meticulously irrigated with normal saline. The hip was reduced and additional Exparel and Marcaine were injected. The capsule was closed with interrupted nonabsorbable sutures. The fascia of the tensor was closed with interrupted and running Vicryl. No drain was placed. Any tensor fascia ni muscle that appeared to be contused or injured which was a minimal amount was carefully resected. Capsule around the tensor was injected with Exparel and Marcaine. The skin was closed with barbed stitches for the subcutaneous tissue and skin. We also used surgical glue. The wound was dressed sterilely. Brief Betadine soak was also used and was meticulously irrigated with normal saline. Patient was transferred to recovery room in satisfactory condition. Complications: none Post-operative Condition: stable Disposition: Acute Care Plan for aftercare: The patient will be maintained on a standard total hip replacement protocol with weight bearing as tolerated and anterior hip precautions. The patient will receive Aspirin and sequential compression devices for DVT prophylaxis. The patient will be discharged home when safe for the home environment.
[2024-10-10 07:30] LABS: Hematocrit 35.8 % (36-46); Hemoglobin 12.5 g/dL (12.0-16.0); Mean Corpuscular HGB Conc 34.9 % (30-36); Mean Corpuscular Hemoglobin 32.7 PG (26-34); Mean Corpuscular Volume 93.7 fL (80-100); Platelet Count 163 X10^3/uL (150-400)
[2024-10-10] MEDS: VANCOMYCIN 1,000 MG in SODIUM CHLORIDE 0.9% 250 ML 250 MG IV (07:30)
[2024-10-10] MEDS: LACTATED RINGERS 1,000 ML 42 ML IV ×3 (07:31→10:53)
[2024-10-10] MEDS: CEFAZOLIN 2 GM/100 ML PREMIX 100 ML IV ×3 (08:17→23:46)
[2024-10-10] MEDS: TRANEXAMIC ACID 1,000 MG VIAL 1000 MG INJ ×2 (08:21→10:52)
--- NOTE | 2024-10-10 08:36 | SUR.OPER ---
Supine on padded Fenton table with bilateral legs secured in padded positioning boots and suspended in positioning spars, operative leg in traction per surgeon. Head on one pillow. Arm on non-operative side secured on padded armboard <90 degrees abduction. Arm on operative side padded and resting across chest then secured with tape over sheet. Padded perineal post in place per surgeon.
[2024-10-10] MEDS: BUPIVACAINE 0.25% W/ EPI 30 ML VIAL 60 ML INJ (08:53)
[2024-10-10] MEDS: BUPIVACAINE LIPOSOME 266 MG/20 ML VIAL INJ (08:53)
[2024-10-10] MEDS: ACETAMINOPHEN 325 MG TABLET 650 MG PO ×3 (13:13→23:43)
[2024-10-10] MEDS: LACTATED RINGERS 1,000 ML 100 ML IV (13:14)
--- NOTE | 2024-10-10 15:10 | OT.IP.EVAL ---
Current Diagnoses Mechanical loosening of other internal prosthetic joint, initial encounter (10/10/24) Presence of left artificial hip joint (10/10/24) Surgery Performed Operation Date: 10/10/24 07:45 Actual Procedures p Anterior Left Total Hip Revision, acetabular component(Left) - Yaima Betancourt MD Past Medical History (Last Updated 08/01/24 @ 09:13 by Janey Montoya, RN) ADHD Anxiety Eczema HLD (hyperlipidemia) Osteoarthritis Osteoporosis Surgical History (Last Updated 10/01/24 @ 07:48 by Janey Montoya RN) History of hysterectomy History of total left hip replacement (08/07/24) History of total right hip replacement (07/2018) Hx of bilateral cataract extraction Hx of hernia repair Hx of tonsillectomy Occupational Therapy Inpatient Evaluation/Re-Eval M1 PT/OT-IP Prior Functional Status Start: 10/10/24 15:00 Freq: NEEDED Status: Active Protocol: Document 10/10/24 15:10 [facility] (Rec: 10/10/24 16:11 [facility] Desktop) Medical Review Prior Functional Status Medical History Yes Reviewed Diet/Fluid Regular Consistency Communication WNLs Mobility and Gait Mod I with cane or 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 Home Environment Standard Height Toilet,Walk in Shower Home Equipment Front Wheel Walker,Straight Cane,Bedside Commode,Shower Seat with Backrest,Hand Held Shower,Long Handled Shoe Horn,Moccasin Sewer,Sock Aid,Grab Bars In Shower M2 OT-IP Current Condition Start: 10/10/24 16:01 Freq: Status: Active Protocol: Document 10/10/24 15:10 [facility] (Rec: 10/10/24 16:11 [facility] Desktop) Occupational Therapy Current Condition Current Condition Evaluation Date 10/10/24 Treatment Diagnosis S/P Revision L KAREN anterior Diagnosis Onset Date 10/10/24 Post Operative Precautions Other Precautions DO not hyperextend left hip. Weight Bearing Status Weight Bearing Weight Bear as Tolerated Status M3 OT- IP Subjective and Pain Start: 10/10/24 16:01 Freq: Status: Active Protocol: Document 10/10/24 15:10 [facility] (Rec: 10/10/24 16:11 [facility] Desktop) OT- Subjective Occupational Therapy Visit Type Type Initial Evaluation Visit Start Time 15:10 Visit Stop Time 15:30 Occupational Therapy Visit Comments Patient Comments Pt agreed to get up to use the toilet. Patient/Caregiver TO go home. Goals OT Pain Assessment Pain When Pain Assessed During Mobility Pain Present Pain Present Pain Reported Location left hip Intensity 2 Scale Used Numeric (0 - 10) M4 OT- IP ADL's Start: 10/10/24 16:01 Freq: Status: Active Protocol: Document 10/10/24 15:10 [facility] (Rec: 10/10/24 16:11 [facility] Desktop) OT [id number] Comments OT Self-Feeding Not at meal time. Comments OT ADL-Grooming Comments OT Grooming Comments NOt performed. OT ADL-Oral Care Comments Oral Care Comments Not performed. OT ADL-Dressing Comments OT Dressing Comments Pt has LB dressing equipment at home to use. OT ADL-Toileting General Evaluation Toileting Ability Standby Assistance Comments OT Toileting Pt able to try to use the toilet with SBA, but unable Comments to go at this time. OT ADL-Bathing Comments OT Bathing Comments Best to have assist initially. Pt states from last sx able to shower on her own after a few days. M5 OT- IP IADL's Start: 10/10/24 16:01 Freq: Status: Active Protocol: Document 10/10/24 15:10 [facility] (Rec: 10/10/24 16:11 [facility] Desktop) OT-Instrumental Activities of Daily Living Home Safety Awareness Awareness of Need Good Awareness for Assistance at Home Ability to Problem Able to Problem Solve Solve Emergency Situations Medication Management Medication No Deficits Identified Management Money Management Money Management No Deficits Identified Meal Preparation Meal Preparation Caregiver Provides Assist Hot Kettle Tender Hot Kettle Tender Caregiver Provides Assist M6 OT- IP Functional Cognition Start: 10/10/24 16:01 Freq: Status: Active Protocol: Document 10/10/24 15:10 [facility] (Rec: 10/10/24 16:11 [facility] Desktop) Cognitive Factors Limiting Selfcare Function Cognitive Ability Level of Alertness Alert Patient Orientation Name,Age,Birthday,Month,Date,Year,Day of Week,Place, Situation Attention Span Capable of Focused Attention,Capable of Sustained Ability Attention Ability to Follow Able to Follow One Step Commands Commands Cognitive Comments Cognitive Assessment Pt intact and able to state her hip precautions and Comments follow commands for ADL and mobility needs. OT- Vision and Hearing OT- Hearing Assessment OT- Hearing WFL Assessment M7 OT- IP Mobility and Balance Start: 10/10/24 16:01 Freq: Status: Active Protocol: Document 10/10/24 15:10 [facility] (Rec: 10/10/24 16:11 [facility] Desktop) OT- Bed Mobility Assessment Sit to Supine Sit to Supine Assist Minimal Assistance OT-Transfer Assessment Sit to and From Stand Sit to and from Contact Guard Assistance Stand Transfers Transfer Ability Contact Guard Assistance Technique Transfer Destination Bed,Toilet Transfer Technique Stand Step Pivot Devices Transfer Assistive Gait Belt,Front Wheeled Walker Devices Comments Mobility Comments CGA to stand and walk to the toilet and back with the FWW. HAILE to help assist her leg back into bed. BP supine 107/53 and standing 138/88. OT- Balance Assessment Sitting Balance and Reactions Static Sitting Good Balance Ability Dynamic Sitting Good Balance Ability Standing Balance and Reactions Static Standing Good Balance Ability Dynamic Standing Good Balance Ability M8 OT- IP Objective Assessments Start: 10/10/24 16:01 Freq: Status: Active Protocol: Document 10/10/24 15:10 [facility] (Rec: 10/10/24 16:11 [facility] Desktop) OT Gross Range of Motion Upper Extremity Range of Motion Assessment Within Functional Limits OT Strength Upper Extremity Strength Assessment Within Functional Limits M9 OT- IP Assessment and Plan Start: 10/10/24 16:01 Freq: Status: Active Protocol: Document 10/10/24 15:10 [facility] (Rec: 10/10/24 16:11 [facility] Desktop) OT Summary Assessment and Plan Potential Rehabilitation Excellent Potential Analytic Complexity Low at Evaluation Summary OT Impairments Pain,Balance,Functional Mobility,Bathing Progress Towards Progressing Toward Goals Goals Assessment Summary Pt doing well and main barrier is pain and already been able to get up to use try to use the toilet but without success. Pt to go home with assist when medically stable and attend outpt PT. Goals Self-Feeding Goal Independent Grooming Goal Independent Dressing Goal Independent,Elastic Shoe Laces,Moccasin Sewer,Sock Aid Toileting Goal Independent Bathing Goal Independent Toilet Transfer Goal Independent Shower Transfer Goal Independent Days to Meet Goals 5 Frequency of Treatment Frequency Of Once a Day Treatment Treatment Plan OT Treatment Plan ADL Training,Functional Mobility,Patient/Family Education,Discharge Planning Discharge Recommendations OT Discharge Home with Assistance,Outpatient PT Recommendations Transportation Needs Private Vehicle at Discharge
--- NOTE | 2024-10-10 15:32 | PT.IIE ---
Current Diagnoses Mechanical loosening of other internal prosthetic joint, initial encounter (10/10/24) Presence of left artificial hip joint (10/10/24) Surgery Performed Operation Date: 10/10/24 07:45 Actual Procedures p Anterior Left Total Hip Revision, acetabular component(Left) - Yaima Betancourt MD Surgical History (Last Updated 10/01/24 @ 07:48 by Janey Montoya, RN) History of hysterectomy History of total left hip replacement (08/07/24) History of total right hip replacement (07/2018) Hx of bilateral cataract extraction Hx of hernia repair Hx of tonsillectomy Medical History (Last Updated 08/01/24 @ 09:13 by Janey Montoya RN) ADHD Anxiety Eczema HLD (hyperlipidemia) Osteoarthritis Osteoporosis Physical Therapy Inpatient Evaluation/Re-Eval M1 PT/OT-IP Prior Functional Status Start: 10/10/24 15:00 Freq: NEEDED Status: Active Protocol: Document 10/10/24 15:00 [facility] (Rec: 10/10/24 15:32 [facility] Desktop) Medical Review Prior Functional Status Medical History Yes Reviewed Diet/Fluid Regular Consistency Communication WNLs Mobility and Gait 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 Home Environment Standard Height Toilet,Walk in Shower Home Equipment Front Wheel Walker,Straight Cane,Bedside Commode,Shower Seat with Backrest,Hand Held Shower,Outside Maintenance Worker,Sock Aid, Grab Bars In Shower Employment Status Retired M2 PT-IP Current Condition Start: 10/10/24 15:00 Freq: NEEDED Status: Active Protocol: Document 10/10/24 15:00 [facility] (Rec: 10/10/24 15:32 [facility] Desktop) Physical Therapy Current Condition Current Condition Evaluation Date 10/10/24 Treatment Diagnosis Left anterior total hip revision acetabular component M3 PT-IP Subjective Start: 10/10/24 15:00 Freq: NEEDED Status: Active Protocol: Document 10/10/24 15:00 [facility] (Rec: 10/10/24 15:32 [facility] Desktop) Subjective Physical Therapy Visit Type Type Initial Evaluation Visit Start Time 15:00 Visit Stop Time 15:22 Number of MERCHANDISE MARKER Visits 0 Physical Therapy Visit Comments Patient Comments Pt is agreeable to PT, would like to try going to the BR, has some ongoing decreased sensation in left LE Therapy Pain Assessment Pain When Pain Assessed At Rest Pain Present Pain Present Pain Reported Location left hip Intensity 1 Scale Used Numeric (0 - 10) M4 PT-IP Mobility and Gait Start: 10/10/24 15:00 Freq: NEEDED Status: Active Protocol: Document 10/10/24 15:00 [facility] (Rec: 10/10/24 15:32 [facility] Desktop) PT-Bed Mobility Assessment Supine to Sit Supine to Sit Standby Assistance,1 Person Assistance PT-Transfer Assessment Sit to and From Stand Sit to and from Contact Guard Assistance,1 Person Assistance Stand Equipment Transfer Assistive Gait Belt,Front Wheeled Walker Device Transfers Transfer Destination Toilet Transfer Technique Ambulation Transfer Ability Level of Assist Contact Guard Assistance,1 Person Assistance Comments Mobility Comments BP and HR in LUE: supine 107/53, 64 and pt takes several minutes to get to feet and BP 137/88, 83. O2 sats 100% on RA Gait Assessment Gait Gait Assistance Contact Guard Assist Required: Distance (Feet) 20 Able to Maintain Yes Weight Bearing Status During Gait Assistive Devices Assistive Device Gait Belt,Front Wheeled Walker Orthotic/Prosthetic No Devices or Brace: Gait Deviations General Gait Pattern Antalgic,Decreased Stride Length,Decreased Feet Clearance,Step-to Gait Factors Limiting Gait Function Factors Limiting Decreased Sensation,Decreased Strength,Limited Range of Gait Function Motion,Pain,Poor Balance,Poor Safety Awareness PT-Balance Assessment Sitting Balance and Reactions Static Sitting Good Balance Ability Dynamic Sitting Good Balance Ability Standing Balance and Reactions Static Standing Good Balance Ability Dynamic Standing Good Balance Ability Device Used RW M5 PT-IP Objective Assessments Start: 10/10/24 15:00 Freq: NEEDED Status: Active Protocol: Document 10/10/24 15:00 [facility] (Rec: 10/10/24 15:32 [facility] Desktop) Orientation Orientation/Cognition Level of Alertness Alert Orientation Name,Birthday Language Function No Deficits Noted Ability Safety Awareness Understands Safety Issues Memory Description No Deficits Noted Gross Range of Motion Upper Extremity ROM Impairments Defer to OT Lower Extremity ROM Assessment Left Impaired Impairments Did not test left hip post-op, functional weakness in the leg Strength Lower Extremity Strength Assessment Left Impaired Coordination Assessment Gross Coordination Gross Coordination Impaired Sensation Assessment Comments Sensation Comments Ongoing sensory changes post-op today Muscle Tone Muscle Tone WNL Yes M6 PT-IP Treatment Start: 10/10/24 15:00 Freq: NEEDED Status: Active Protocol: Document 10/10/24 15:00 [facility] (Rec: 10/10/24 15:32 MB Desktop) Physical Therapy Treatment Education Education Provided Precautions,Weight Bearing Status,Post-Op Packet,Safety M7 PT-IP Assessment and Plan Start: 10/10/24 15:00 Freq: NEEDED Status: Active Protocol: Document 10/10/24 15:00 [facility] (Rec: 10/10/24 15:32 MB Desktop) PT Summary Assessment and Plan Potential Rehabilitation Good Potential Status of Condition Evolving at Evaluation Summary Impairments Pain,ROM,Strength,Balance,Coordination,Sensation,Bed Mobility,Transfers,Gait,Activity Tolerance Assessment Summary Pt is a 68 y/o female who has good understanding of no hyperextension and mobility s/p left total hip revision acetabular component today after a total hip replacement a couple of months ago and subsequent acetabular loosening. Pt moves slowly and carefully but well, post-op. She will have son assistance at d/c and anticipate returning to OPPT once cleared by Dr. Betancourt . Goals Bed Mobility Goal Independent Transfer Goal Independent,Front Wheeled Walker Gait Goal Independent,Front Wheel Walker Gait Distance 100 Other Goals Pt will ascend and descend one porch-type step with LRAD and no more than CGA to allow safe home entrance. Days to Meet Goals 2 Frequency of Treatment Frequency Of Once a Day Treatment Treatment Plan Physical Therapy Bed Mobility Training,Transfer Training,Gait Training, Treatment Plan Therapeutic Exercise,Balance Retraining,Post Op Education,Discharge Planning,Hot or Cold Pack, Neuromuscular Re-ed,Coordination Retraining,Manual Therapy Precautions Other Precautions No left hip hyperextension Weight Bearing Status Weight Bearing Weight Bear as Tolerated Status Allowed Weight LLE Bearing Amount ( enter % or #) (%) Recommendations To Nursing Amount of Assist Standby Assistance Needed Discharge Recommendations PT Discharge Home with Assistance,Outpatient PT Recommendations Transportation Needs Private Vehicle at Discharge - PT assist x1
[2024-10-10] MEDS: IBUPROFEN 400 MG TABLET PO (16:19)
[2024-10-10] MEDS: ASPIRIN EC 81 MG TABLET PO (20:05)
[2024-10-10] MEDS: DOCUSATE 100 MG CAPSULE PO (20:05)
[2024-10-10] MEDS: HYDROCODONE/ACET 5/325 TABLET 1 TAB PO (20:06)
--- NOTE | 2024-10-10 22:22 | PC.NURSE ---
Addendum entered by Linette Stratton R.N. 10/11/24 06:06: Up to bathroom this morning and complained of feeling slight nauseated but declining antiemetic at this time. Original Note: Patient is alert and oriented. Breath sounds CTA with RA sat of 97% and has on continuous oximetry. HRR. Denied nausea. BT present but hypoactive; states she has passed some flatus. Voiding without dysuria, frequency or urgency. Able to turn herself in bed. Assisted to bathroom with walker and SBA although did need some help getting left leg into bed. Wearing bilateral calf SCD's. Aquacel dressing to anterior left hip is CDI. Bandaid over spinal puncture site is CDI. Bruise noted to lower lip. Complained of 5/10 pain and was medicated with scheduled Vicodin and is currently asleep. CMS is intact; denies any numbness/tingling. Fall risk score is moderate and bed alarm is activated. Hoping to be able to DC in the morning.
[2024-10-11] MEDS: HYDROCODONE/ACET 5/325 TABLET 1 TAB PO (04:01)
[2024-10-11 06:38] LABS: Hematocrit 25.8 % (36-46); Hemoglobin 9.1 g/dL (12.0-16.0)
[2024-10-11 07:40] VITALS: BP 132/86; PULSE 76; RESP 12; TEMP 36.9; O2SAT 96
--- NOTE | 2024-10-11 07:51 | PM.DS.1 ---
History of Present Illness History of Present Illness Date Patient Seen: 10/11/24 Time Patient Seen: 07:52 Chief complaint: INPT revision left karen anterior Narrative: She had a left total hip arthroplasty for severe left hip osteoarthritis and known significant osteoporosis. She had significant softening of her bone and had evidence of acetabular loosening and malposition. She was returned to the operating room for revision acetabulum replacement. Discharge Providers Provider Date of admission: 10/10/24 06:02 Discharge Date: 10/11/24 Primary care physician: Mamadou Bhatti DO Consults: 10/10/24 06:00 Consult to Anesthesiology Routine Comment: Consulting Provider: Anesthesiologist Reason for consultation: Regional block for post operative pain control Has provider been notified: No 10/10/24 12:28 Consult to Discharge Planning Routine Comment: Consult to Occupational Therapy Evaluate & Treat Comment: Physician Instructions: Evaluate and treat Consult to Physical Therapy Evaluate & Treat Comment: Physician Instructions: post op KAREN protocol Discharge provider: Yaima Betancourt MD Summary Hospital Course Discharge Diagnosis: Left total hip revision acetabulum Hospital Course: Patient was taken to the operating room she underwent the induction of anesthesia. She had a revision of her left cup. Intraoperative findings were of obvious loosening of the acetabulum. She tolerated the procedure well. She was mobilized with physical therapy. She was safe for discharge to home. Status at Discharge Cognitive/behavioral status at discharge: oriented Functional status at discharge: uses cane/walker Overall status at discharge: patient is progressing back to baseline Exam Vital Signs (past 8 hours): Oxygen Delivery Method Room Air Oxygen Flow Rate 0 Narrative Exam Narrative: She was resting comfortably in bed. Leg lengths are equal. Her dressings intact. She is neurologically intact distally. Her calves are soft. Objective Labs 10/11/24 06:25 Labs: Laboratory Results - last 24 hr 10/10/24 10/11/24 07:15 06:25 Hgb 9.1 L Hct 25.8 L Blood Type A Positive Antibody Screen Negative PFSH Medical History Anxiety ADHD Eczema Osteoarthritis Osteoporosis HLD (hyperlipidemia) Surgical History History of total left hip replacement (08/07/24) History of total right hip replacement (07/2018) Hx of tonsillectomy History of hysterectomy Hx of hernia repair Hx of bilateral cataract extraction Social History household members: children Smoking Status: Never smoker alcohol intake: never Discharge Assessment & Plan Assessment and Plan Assessment: Doing well postoperatively. Plan of Treatment: Okay to discharge to home. We will resume physical therapy but will do some protected weight-bearing using initially a walker in advancing to a cane as tolerated. Discharge Plan Discharge Plan Patient Disposition: Home Discharge orders & Medications Prescriptions: New polyethylene glycol 3350 17 gram Powder In Packet 17 g PO DAILY PRN (Reason: Constipation) Qty: 14 0RF aspirin 81 mg Tablet,Delayed Release (Dr/Ec) 81 mg PO BID Qty: 90 0RF oxycodone 5 mg Tablet 5 mg PO Q3H PRN (Reason: Pain, Moderate (4-6)) Qty: 30 0RF Continued terbinafine HCl 250 mg tablet 250 mg PO DAILY rosuvastatin 20 mg tablet 20 mg PO DAILY ibuprofen 800 mg Tablet 800 mg PO DAILY Discontinued hydrocodone-acetaminophen 5-325 mg Tablet 1 tab PO TID Follow up/Referrals: Mamadou Bhatti DO [Primary Care Provider, Family Practice] Diet/Activity/Treatments Diet: Diet as Tolerated Activity: Walk as tolerated. Avoid falls. Cold/Heat Therapy: Use ice multiple times a day. Skin/Wound/Dressing Care Skin care: Okay to shower. Report to your healthcare provider any signs of infection, such as:: chills, fever, night sweats, increased pain, unusual drainage and unusual redness Dressing: Leave dressing on. Visit Report/Discharge Packet Instructions: DI for Hip Replacement, DI for Prescription Opioid Use Stand Alone Forms: Patient Portal/API, Stroke Signs & Symptoms, Surgery Discharge Discharge Data Primary Care Provider: Mamadou Bhatti
[2024-10-11] MEDS: ASPIRIN EC 81 MG TABLET PO (08:04)
[2024-10-11] MEDS: DOCUSATE 100 MG CAPSULE PO (08:04)
[2024-10-11] MEDS: ACETAMINOPHEN 325 MG TABLET 650 MG PO (08:05)
[2024-10-11] MEDS: SODIUM CHLORIDE 0.9% FLUSH 10 ML IV (08:08)
--- NOTE | 2024-10-11 08:58 | CM.DANOTE ---
DCP assessment Note pt is a 68yo F POD1 hip revision with Dr. Betancourt. initial hip surgery done august 2024. PCP Mamadou ELIZABETH and lex [facility]. CONSTRUCTION PLUMBER reviewed EMR. PT/OT=home with family and OP therapies. dc order in. CONSTRUCTION PLUMBER entered room and introduced self and role. pt sitting up in bed eating breakfast. confirms lives at home with son Jeffery, local sister/brother to assist nearby as well. has all DME from initial surgery in August. denies any DCP/CM needs at this time. son to transport home. P: home today with son support. CM team will continue to follow as needed for DCP needs in case any arise LISSETH Ivy Discharge Planning/Care Management CM Discharge Assessment Start: 10/10/24 06:57 Freq: Status: Active Protocol: Document 10/11/24 08:22 SL (Rec: 10/11/24 08:23 SL Desktop) Discharge Planning Assessment Assigned Discharge LISSETH Brandon Interior Assemblies Installer DPOA/Assigned koby Gil Designee Name Contact Information [phone] Advance Directives? Yes Advance Directives No on File History Provided By Patient,Medical Record Prior Living House Arrangements Household Members children Independent with ADL Yes 's Is patient alert and Yes oriented? DME Already Rented / Bath Bench,Elevated Toilet Seat,FWW / Walker,Bedside Owned Commode Patient/Family OP PT Therapy Preference Discharge Plan Home Transportation Koby Gil plans to provide transport at d/c Arrangement Referrals Initiated None needed Review Status In Process Please Provide Date 10/11/24 Initial DC Assessment Was Performed Next Review Type Continued Stay Review Pre-Anesthesia Assessment Start: 10/01/24 07:40 Freq: Status: Complete Protocol: Document 10/01/24 07:40 CAB (Rec: 10/01/24 07:52 CAB [id number]) Pre-Anesthesia Assessment PAC Comment Phone assess 10/01/24 Patient Information Phone Assessment Reviewed Via Assessment Completed Patient With Diagnostic Results BMP/CMP,CBC,EKG,Urinalysis Comment Labs/EKG @ [facility] 05/15/24-pt will repeat labs @ [facility] 10/02. Primary Care Mamadou Bhatti Provider Seen Specialist in Yes Last 12 Months Specialist Seen Orthopedist Primary Language Maldivian Preferred Language Maldivian Guide Winder Required No Height 152.4 cm Weight 53.524 kg Body Mass Index (BMI 23.0 ) Hearing Ability Normal Visual Assist Glasses Dentition Type Teeth, Natural Present Barriers to Learning None Other Aids No Hx Anesthesia Yes: Sensitive to spinal anesthesia, took 6-7 hours to Reactions wear off Hx Family Anesthesia No Reaction Hx Malignant No Hyperthermia Hx Blood No Transfusions Hx Blood Transfusion No Reaction Anesthesia Review No Requested Member Of [employer] No alcohol intake never Smoking Status Never smoker Substance Use Type [ does not use #R] Pain Present Pain Reported Musculoskeletal Abnormal Gait,Difficulty Walking,Joint Pain Symptoms History of Falling ( Yes Recent or History of ) Patient is No completely paralyzed or completely immobile Prosthesis or Front Wheel Walker,Wheelchair Orthotic Device Mental Status Oriented to own ability Is patient on oxygen No ? Does patient have No CASTELLANOS/SOB Hx Sleep Apnea No CPAP/BIPAP use not prescribed Currently Taking a No Beta Yasmeen Hx Chest Pain No Hx SOB No Hx Syncope or No Dizziness Anti-Coagulant No Therapy Has a Shopper Marketing Manager No Cardiac Testing No Hx Pacemaker/ICD No Pacemaker Rep No Required? Cardiac Clearance No Received Gastrointestinal None Symptoms Chronic UTI No Urinary Catheter No Present Hx Urinary Self No Catheterization Diabetes No HgbA1C 5.4 Date 05/15/24 Patient No Lactating No Hx Drug Resistant No Organism Presence of External Yes: Bilat eye IOLs, bilat hip prosthesis or Internal Medical Devices Month and year fall 2023 received flu vaccine Marital Status / Lives With children Current Living House Arrangements Number of Floors ( One Floor Floors) Number of Stairs To 1 step Enter/Railing? Support System Child/Children Does the Patient Yes: Lives with son who will assist with care at [place] Have Assistance After Surgery Patient Discharge Return Home Plan Description Comment Pt not advised on length of stay per surgeon Feels Safe in Yes Current Environment Been Physically Hurt No or Threatened By a Person in Current Environment Do you have thoughts None of harming yourself or others? Are you currently No considering suicide? Do you have a plan No Plan to hurt yourself or others? Do You Have Any No Spiritual Beliefs That May Affect Your HC Choices? Do You Have Any No Cultural Practices That May Affect Your HC Choices? Comment Hinduism Who Can We Speak to Family, friends About Patient's Care Identifying Code for Declines to issue Release of Patient Information Health Care Proxy/ Bibi (daughter) Jeffery (son) Next of Kin Health Care Proxy Bibi: [phone] Jeffery: [phone] or [phone] Phone Number [phone] Emergency Contact Bibi (daughter) Jeffery (son) Name Emergency Contact Bibi: [phone] Jeffery: [phone] or [phone] Phone Number [phone] Advance Directives? Yes Advance Directives No on File Requested Patient Yes Bring Advanced Directives DOS Power of Laborer Poultry Hatchery Yes: Pt unsure of who POA is at present PAC Instructions Assistance for 24 hours post-op,Do not shave/clip surgical site,Durable medical equipment,Medications to take/avoid,Nasal antibiotic,No ETOH/petroleum product on skin DOS,NPO,Post-op transportation,Pre-surgical wash,Sturdy shoes/comfortable clothes,Do not bring valuables and remove jewelry Stop Bang Assessment Do you snore loudly Pt stated that she didn't know (louder than talking or loud enough to be heard through closed doors) Do you often feel No tired, fatigued or sleepy during the daytime Has anyone ever No observed you stop breathing while sleeping? Do you have, or are Yes you being treated for, high blood pressure Is your BMI more No than 35 kg/m2 Age over 50 Yes Estimated neck No circumference greater than 40cm or 16in Gender male No Result Negative
[2024-10-11] MEDS: IBUPROFEN 400 MG TABLET PO (10:26)
== END 2024-10-11 11:28 | disposition home or self-care (01) | DRG 468 ==
PROVIDERS: Student in an Organized Health Care Education/Training Program; Admitting Provider Orthopaedic Surgery; PCP Family Medicine; Referring Provider Orthopaedic Surgery; Visit Provider Orthopaedic Surgery
PROC: 0SRB06A Replacement of Left Hip Joint with Oxidized Zirconium on Polyethylene Synthetic Substitute, Uncemented, Open Approach (ICD-10-PCS; principal; 2024-10-10 07:45)
DX: T84.031A Mechanical loosening of internal left hip prosthetic joint, initial encounter (principal); M81.0 Age-related osteoporosis without current pathological fracture; E78.5 Hyperlipidemia, unspecified; Y79.2 Prosthetic and other implants, materials and accessory orthopedic devices associated with adverse incidents
CPT/HCPCS: 36415; 73502; 76000; 85014; 85018; 85027; 86850; 86900; 86901; 87070; 87075; 87205; 87801; 97161; 97165; C1776; C1713; J0666; J0690; J2704; J3010